=== PATIENT | male | born 1960 | race Caucasian/White ===

== ENCOUNTER 2019-01-14 18:18 | Inpatient (IN) | payer OTHER ==
[~2019-01-14] VITALS: Ht 170.2 cm; Wt 130.6 kg
[2019-01-14 18:18] VITALS: BP_SYST 158
[~2019-01-14 18:18] MED LIST: APIX5TAB4 PO; CEPH-568 PO; HYDR-4038 PO; LISI-600 PO; PRED20TA PO; TOPXL100 PO
[2019-01-14] MEDS ORDERED: EMPA10TA PO (18:51)
[2019-01-14] MEDS ORDERED: TAMS0.4C96 PO (18:51)
[2019-01-14 19:13] LABS: BASOPHILS % (AUTO) 0.2 % (0.0-2.0); HEMATOCRIT 41.1 % (36-54); HEMOGLOBIN 13.3 g/dL (14.0-18.0); LYMPHOCYTES # (AUTO) 0.2 K/uL (1.0-5.5); LYMPHOCYTES % (AUTO) 1.5 % (20.5-51.5); MEAN CORPUSCULAR HEMOGLOBIN 29 pg (27-31); MEAN CORPUSCULAR HGB CONC 32 % (32-36); MEAN CORPUSCULAR VOLUME 91 fL (79.0-98.0); MONOCYTES # (AUTO) 0.3 K/uL (0.0-1.0); NEUTROPHILS # (AUTO) 15.9 K/uL (1.8-7.7); NEUTROPHILS % (AUTO) 96.3 % (40.0-70.0); PLATELET COUNT (AUTO) 219 K/uL (130-430); RED BLOOD CELL COUNT(AUTO) 4.53 MIL/uL (4.2-6.2); RED CELL DISTRIBUTION WIDTH 17.1 % (9.0-15.0); WHITE BLOOD COUNT (AUTO) 16.5 K/uL (4.8-10.8)
[2019-01-14 19:27] LABS: CALCIUM 8.6 mg/dL (8.4-11.0); CREATININE 1.58 mg/dL (0.55-1.30); POTASSIUM 3.8 mmol/L (3.5-5.1)
[2019-01-14 19:31] LABS: INR 1.1 (0.80-1.20); PROTHROMBIN TIME 11.1 SECS (9.5-12.5)
[2019-01-14 19:33] LABS: ALBUMIN 2.7 g/dL (3.4-4.8); TOTAL BILIRUBIN 1.3 mg/dL (0.0-1.0)
[2019-01-14] MEDS ORDERED: PANTOPRAZOLE SODIUM 40 MG/VIAL (PROTONIX) IVP ONE (19:45)
[2019-01-14] MEDS ORDERED: METO-442 PO (20:30)
[2019-01-14] MEDS ORDERED: DEXTROSE 50% JECT 50 ML DISP.SYRIN IVP PRN (20:30)
[2019-01-14] MEDS: PANTOPRAZOLE SODIUM 40 MG/VIAL (PROTONIX) IVP SCH ×2 (20:30→21:00)
[2019-01-14] MEDS ORDERED: METOPROLOL TARTRATE 50 MG TABLET PO SCH (21:00)
[2019-01-14] MEDS: PREDNISONE 20 MG TABLET PO SCH (21:00)
[2019-01-14 21:41] VITALS: BP_SYST 153
[2019-01-14] MEDS: NACL 0.9% 1,000 ML IV SCH (22:53)
[2019-01-15] VITALS (7 sets, daily range): BP systolic 141–187
[2019-01-15 01:34] LABS: HEMATOCRIT 35.5 % (36-54); HEMOGLOBIN 11.9 g/dL (14.0-18.0)
[2019-01-15 08:30] LABS: HEMATOCRIT 35.5 % (36-54); HEMOGLOBIN 11.5 g/dL (14.0-18.0)
[2019-01-15] MEDS: TAMSULOSIN HCL 0.4 MG CAP PO SCH (08:34)
[2019-01-15] MEDS: PREDNISONE 20 MG TABLET PO SCH ×2 (08:34→20:30)
[2019-01-15] MEDS: PANTOPRAZOLE SODIUM 40 MG/VIAL (PROTONIX) IVP SCH ×3 (08:35→20:19)
[2019-01-15] MEDS: NACL 0.9% 1,000 ML IV SCH (10:00)
[2019-01-15] MEDS: hydrALAZINE HCL 25 MG TABLET PO SCH ×3 (12:00→23:54)
[2019-01-15] MEDS: D5NS 1,000 ML IV SCH ×2 (14:06→21:45)
[2019-01-15] MEDS: ENALAPRILAT DIHYDRATE 1.25 MG/ML VIAL IVP PRN (14:25)
[2019-01-15 14:45] LABS: HEMATOCRIT 38.2 % (36-54); HEMOGLOBIN 12.4 g/dL (14.0-18.0)
[2019-01-15] MEDS ORDERED: PROPOFOL 200MG/ 20ML VIAL (DIPRIVAN) IV ONE (15:20)
[2019-01-15] MEDS ORDERED: NS IRRIG SOLN 1000 ML IR ONE (15:20)
[2019-01-15] MEDS ORDERED: WATER FOR IRRIGATION,STERILE 1,000 ML IRRIG.SOLN IR ONE (15:20)
[2019-01-15] MEDS ORDERED: LR 1,000 ML IV.SOLN IV ONE (15:20)
[2019-01-15] MEDS: METOPROLOL TARTRATE 50 MG TABLET PO SCH (20:17)
[2019-01-15 20:19] LABS: HEMATOCRIT 38.3 % (36-54); HEMOGLOBIN 12.5 g/dL (14.0-18.0)
[2019-01-16 02:27] VITALS: BP_SYST 146
[2019-01-16] MEDS: hydrALAZINE HCL 25 MG TABLET PO SCH ×4 (05:22→23:05)
[2019-01-16 06:31] LABS: BASOPHILS # (AUTO) 0.1 K/uL (0.0-0.2); BASOPHILS % (AUTO) 0.5 % (0.0-2.0); EOSINOPHILS % (AUTO) 0.1 % (0.0-4.0); HEMATOCRIT 37.1 % (36-54); HEMOGLOBIN 11.9 g/dL (14.0-18.0); LYMPHOCYTES # (AUTO) 0.4 K/uL (1.0-5.5); MEAN CORPUSCULAR HEMOGLOBIN 29 pg (27-31); MEAN CORPUSCULAR HGB CONC 32 % (32-36); MEAN CORPUSCULAR VOLUME 91 fL (79.0-98.0); MONOCYTES # (AUTO) 0.8 K/uL (0.0-1.0); MONOCYTES % (AUTO) 6.5 % (1.7-9.3); NEUTROPHILS % (AUTO) 89.9 % (40.0-70.0); PLATELET COUNT (AUTO) 181 K/uL (130-430); RED BLOOD CELL COUNT(AUTO) 4.08 MIL/uL (4.2-6.2); WHITE BLOOD COUNT (AUTO) 12.2 K/uL (4.8-10.8)
[2019-01-16 06:50] LABS: ALBUMIN 2.4 g/dL (3.4-4.8); CALCIUM 8.4 mg/dL (8.4-11.0); CREATININE 1.04 mg/dL (0.55-1.30); POTASSIUM 3.5 mmol/L (3.5-5.1); TOTAL BILIRUBIN 1.2 mg/dL (0.0-1.0)
[2019-01-16] MEDS: D5NS 1,000 ML IV SCH ×2 (07:45→17:45)
[2019-01-16] MEDS ORDERED: DIATR MEGLU/DIATRIZ SOD 30 ML SOLUTION PO ONE (08:08)
[2019-01-16] MEDS: PANTOPRAZOLE SODIUM 40 MG/VIAL (PROTONIX) IVP SCH ×2 (08:22→20:44)
[2019-01-16 09:51] VITALS: BP_SYST 135
[2019-01-16] MEDS ORDERED: IOHEXOL 100 ML IV ONE (10:07)
[2019-01-16] MEDS: TAMSULOSIN HCL 0.4 MG CAP PO SCH (10:33)
[2019-01-16] MEDS: PREDNISONE 20 MG TABLET PO SCH ×4 (10:33→21:02)
[2019-01-16] MEDS: LISINOPRIL 20 MG TABLET PO SCH (10:34)
[2019-01-16] MEDS: METOPROLOL TARTRATE 50 MG TABLET PO SCH ×2 (10:34→20:46)
[2019-01-16 12:28] VITALS: BP_SYST 150
[2019-01-16 14:44] LABS: HEMATOCRIT 37.6 % (36-54); HEMOGLOBIN 12.3 g/dL (14.0-18.0)
[2019-01-16 17:22] VITALS: BP_SYST 161
[2019-01-16] MEDS: INSULIN REGULAR, HUMAN 100 UNITS/ML, 10 ML VIAL (humuLIN R) SUBCUT PRN (18:17)
[2019-01-16 20:17] LABS: HEMATOCRIT 36.7 % (36-54)
[2019-01-17 00:46] VITALS: BP_SYST 155
[2019-01-17] MEDS: D5NS 1,000 ML IV SCH (03:18)
[2019-01-17] MEDS: hydrALAZINE HCL 25 MG TABLET PO SCH ×3 (06:11→18:20)
[2019-01-17 06:46] LABS: BASOPHILS % (AUTO) 0.2 % (0.0-2.0); EOSINOPHILS % (AUTO) 0.1 % (0.0-4.0); HEMATOCRIT 35.3 % (36-54); HEMOGLOBIN 11.5 g/dL (14.0-18.0); LYMPHOCYTES # (AUTO) 0.4 K/uL (1.0-5.5); LYMPHOCYTES % (AUTO) 3.6 % (20.5-51.5); MEAN CORPUSCULAR HEMOGLOBIN 30 pg (27-31); MEAN CORPUSCULAR HGB CONC 33 % (32-36); MEAN CORPUSCULAR VOLUME 90 fL (79.0-98.0); MONOCYTES # (AUTO) 0.8 K/uL (0.0-1.0); MONOCYTES % (AUTO) 7.4 % (1.7-9.3); NEUTROPHILS # (AUTO) 9.1 K/uL (1.8-7.7); PLATELET COUNT (AUTO) 178 K/uL (130-430); RED BLOOD CELL COUNT(AUTO) 3.91 MIL/uL (4.2-6.2); RED CELL DISTRIBUTION WIDTH 16.7 % (9.0-15.0); WHITE BLOOD COUNT (AUTO) 10.3 K/uL (4.8-10.8)
[2019-01-17 06:58] LABS: ALBUMIN 2.3 g/dL (3.4-4.8); CALCIUM 7.8 mg/dL (8.4-11.0); CREATININE 0.92 mg/dL (0.55-1.30); POTASSIUM 3.2 mmol/L (3.5-5.1); TOTAL BILIRUBIN 1.2 mg/dL (0.0-1.0)
[2019-01-17] MEDS ORDERED: COMMUNICATION ORDER XX ONE ×2 (07:30→13:30)
[2019-01-17] MEDS ORDERED: BISACODYL 5 MG TABLET.DR (DULCOLAX) PO ONE ×2 (07:30→18:00)
[2019-01-17 08:30] VITALS: BP_SYST 128
[2019-01-17] MEDS: PREDNISONE 20 MG TABLET PO SCH ×3 (09:00→20:41)
[2019-01-17] MEDS: LISINOPRIL 20 MG TABLET PO SCH (09:16)
[2019-01-17] MEDS: PANTOPRAZOLE SODIUM 40 MG/VIAL (PROTONIX) IVP SCH ×2 (09:16→20:43)
[2019-01-17] MEDS: METOPROLOL TARTRATE 50 MG TABLET PO SCH ×2 (09:17→20:43)
[2019-01-17] MEDS: TAMSULOSIN HCL 0.4 MG CAP PO SCH (09:17)
[2019-01-17 10:06] LABS: NEUTROPHILS % (AUTO) 88.7 % (40.0-70.0)
[2019-01-17 11:06] VITALS: BP_SYST 147
[2019-01-17] MEDS: NACL 0.9% 1,000 ML IV SCH (13:50)
[2019-01-17 14:56] VITALS: BP_SYST 142
[2019-01-17] MEDS ORDERED: PIPERACILLIN/TAZOBACTAM 3.375 GM/ D5W 50 ML IV ONE ×2 (15:00)
[2019-01-17] MEDS: LEVOFLOXACIN 500 MG/D5W 100 ML IV SCH (15:34)
[2019-01-17] MEDS ORDERED: GOLYTELY / COLYTE SOLUTION 4 LITERS PO SCH (18:00)
[2019-01-17] MEDS: metroNIDAZOLE 500 mg/NS 100 ML IV SCH (18:17)
[2019-01-17 19:00] VITALS: BP_SYST 155
[2019-01-17] MEDS: INSULIN REGULAR, HUMAN 100 UNITS/ML, 10 ML VIAL (humuLIN R) SUBCUT PRN (19:29)
[2019-01-17 20:00] VITALS: BP_SYST 155
[2019-01-18] VITALS (10 sets, daily range): BP systolic 129–171
[2019-01-18] MEDS ORDERED: PIPERACILLIN/TAZOBACTAM 3.375 GM/ D5W 50 ML IV SCH ×2
[2019-01-18] MEDS: hydrALAZINE HCL 25 MG TABLET PO SCH ×5 (00:18→23:35)
[2019-01-18] MEDS: metroNIDAZOLE 500 mg/NS 100 ML IV SCH ×7 (00:18→23:35)
[2019-01-18] MEDS: NACL 0.9% 1,000 ML IV SCH ×3 (03:48→18:54)
[2019-01-18 07:25] LABS: BASOPHILS % (AUTO) 0.2 % (0.0-2.0); EOSINOPHILS % (AUTO) 0.2 % (0.0-4.0); HEMATOCRIT 35.8 % (36-54); HEMOGLOBIN 11.9 g/dL (14.0-18.0); LYMPHOCYTES # (AUTO) 0.4 K/uL (1.0-5.5); MEAN CORPUSCULAR HEMOGLOBIN 30 pg (27-31); MEAN CORPUSCULAR HGB CONC 33 % (32-36); MEAN CORPUSCULAR VOLUME 90 fL (79.0-98.0); MONOCYTES # (AUTO) 0.8 K/uL (0.0-1.0); MONOCYTES % (AUTO) 8.2 % (1.7-9.3); NEUTROPHILS # (AUTO) 9.1 K/uL (1.8-7.7); NEUTROPHILS % (AUTO) 87.4 % (40.0-70.0); PLATELET COUNT (AUTO) 173 K/uL (130-430); RED BLOOD CELL COUNT(AUTO) 3.96 MIL/uL (4.2-6.2); RED CELL DISTRIBUTION WIDTH 16.7 % (9.0-15.0); WHITE BLOOD COUNT (AUTO) 10.4 K/uL (4.8-10.8)
[2019-01-18] MEDS: PREDNISONE 20 MG TABLET PO SCH (09:30)
[2019-01-18] MEDS: METOPROLOL TARTRATE 50 MG TABLET PO SCH ×2 (09:31→20:32)
[2019-01-18] MEDS: LISINOPRIL 20 MG TABLET PO SCH (09:31)
[2019-01-18] MEDS: TAMSULOSIN HCL 0.4 MG CAP PO SCH (09:32)
[2019-01-18] MEDS: PANTOPRAZOLE SODIUM 40 MG/VIAL (PROTONIX) IVP SCH ×2 (09:33→20:23)
[2019-01-18] MEDS ORDERED: HYDROCORTISONE SOD SUCC 100 MG/2 ML VIAL IVP ONE (10:30)
[2019-01-18] MEDS: LEVOFLOXACIN 500 MG/D5W 100 ML IV SCH (15:00)
[2019-01-18] MEDS ORDERED: ONDANSETRON HCL 4 MG/2 ML VIAL IVP PRN (15:30)
[2019-01-18] MEDS ORDERED: fentaNYL CITRATE/PF 100 MCG/2 ML AMP IVP PRN (15:30)
[2019-01-18] MEDS ORDERED: KETOROLAC TROMETHAMINE 30 MG VIAL IVP PRN (15:30)
[2019-01-18] MEDS ORDERED: ACETAMINOPHEN 325 MG TABLET PO PRN (16:15)
[2019-01-18] MEDS ORDERED: LR 1,000 ML IV.SOLN IV ONE (16:35)
[2019-01-18] MEDS ORDERED: ROCURONIUM BROMIDE 10 MG/ML (ZEMURON) ONE (16:35)
[2019-01-18] MEDS ORDERED: metroNIDAZOLE 500 mg/NS 100 mL IVPB IV ONE (16:35)
[2019-01-18] MEDS ORDERED: NS 1000 ML IV.SOLN IV ONE (16:35)
[2019-01-18] MEDS ORDERED: KETOROLAC TROMETHAMINE 30 MG VIAL ONE (16:35)
[2019-01-18] MEDS ORDERED: BUPIVACAINE /EPINEPHRINE/PF 0.25% 30 ML VIAL INJ ONE (16:35)
[2019-01-18] MEDS ORDERED: SEVOFLURANE 15 MIN GAS INH ONE (16:35)
[2019-01-18] MEDS ORDERED: NS IRRIG SOLN 1000 ML IR ONE (16:35)
[2019-01-18] MEDS ORDERED: PROPOFOL 200MG/ 20ML VIAL (DIPRIVAN) IV ONE (16:35)
[2019-01-18] MEDS ORDERED: fentaNYL CITRATE/PF 100 MCG/2 ML AMP ONE ×3 (16:35→17:25)
[2019-01-18] MEDS ORDERED: MIDAZOLAM HCL 5 MG/ML VIAL (VERSED) IV ONE (16:35)
[2019-01-18] MEDS ORDERED: HYDROCORTISONE SOD SUCC 100 MG/2 ML VIAL ONE (16:35)
[2019-01-18] MEDS ORDERED: LEVOFLOXACIN 500 MG/D5W 100 ML PIGGYBACK IV ONE (16:35)
[2019-01-18] MEDS: fentaNYL CITRATE/PF 100 MCG/2 ML AMP IVP PRN ×2 (16:45→17:15)
[2019-01-18] MEDS: INSULIN REGULAR, HUMAN 100 UNITS/ML, 10 ML VIAL (humuLIN R) SUBCUT PRN (19:03)
[2019-01-18] MEDS: HYDROmorphone 1 MG INJ. 1 MG/ML AMPUL IVP PRN ×2 (20:23→23:39)
[2019-01-18] MEDS: ENALAPRILAT DIHYDRATE 1.25 MG/ML VIAL IVP PRN (20:23)
[2019-01-18] MEDS: ONDANSETRON HCL 4 MG/2 ML VIAL IVP PRN (20:23)
[2019-01-18] MEDS: HYDROCORTISONE SOD SUCC 100 MG/2 ML VIAL IVP SCH (21:14)
[2019-01-19] VITALS (20 sets, daily range): BP systolic 123–157
[2019-01-19 05:39] LABS: BASOPHILS % (AUTO) 0.2 % (0.0-2.0); HEMATOCRIT 32.6 % (36-54); HEMOGLOBIN 10.7 g/dL (14.0-18.0); LYMPHOCYTES # (AUTO) 0.3 K/uL (1.0-5.5); LYMPHOCYTES % (AUTO) 1.7 % (20.5-51.5); MEAN CORPUSCULAR HEMOGLOBIN 30 pg (27-31); MEAN CORPUSCULAR HGB CONC 33 % (32-36); MEAN CORPUSCULAR VOLUME 91 fL (79.0-98.0); MONOCYTES % (AUTO) 5.7 % (1.7-9.3); NEUTROPHILS # (AUTO) 16.5 K/uL (1.8-7.7); NEUTROPHILS % (AUTO) 92.4 % (40.0-70.0); PLATELET COUNT (AUTO) 153 K/uL (130-430); RED BLOOD CELL COUNT(AUTO) 3.59 MIL/uL (4.2-6.2); RED CELL DISTRIBUTION WIDTH 16.6 % (9.0-15.0); WHITE BLOOD COUNT (AUTO) 17.9 K/uL (4.8-10.8)
[2019-01-19] MEDS: HYDROCORTISONE SOD SUCC 100 MG/2 ML VIAL IVP SCH ×3 (05:41→22:37)
[2019-01-19] MEDS: metroNIDAZOLE 500 mg/NS 100 ML IV SCH ×3 (05:42→17:51)
[2019-01-19] MEDS: HYDROmorphone 1 MG INJ. 1 MG/ML AMPUL IVP PRN ×3 (05:43→20:16)
[2019-01-19] MEDS: INSULIN REGULAR, HUMAN 100 UNITS/ML, 10 ML VIAL (humuLIN R) SUBCUT PRN (05:47)
[2019-01-19] MEDS: hydrALAZINE HCL 25 MG TABLET PO SCH ×3 (06:00→17:51)
[2019-01-19 06:06] LABS: ALBUMIN 1.9 g/dL (3.4-4.8); CALCIUM 7.2 mg/dL (8.4-11.0); CREATININE 0.9 mg/dL (0.55-1.30); POTASSIUM 3.5 mmol/L (3.5-5.1); TOTAL BILIRUBIN 0.7 mg/dL (0.0-1.0)
[2019-01-19] MEDS: LISINOPRIL 20 MG TABLET PO SCH (08:39)
[2019-01-19] MEDS: TAMSULOSIN HCL 0.4 MG CAP PO SCH (08:39)
[2019-01-19] MEDS: PANTOPRAZOLE SODIUM 40 MG/VIAL (PROTONIX) IVP SCH ×2 (08:47→20:17)
[2019-01-19] MEDS: METOPROLOL TARTRATE 50 MG TABLET PO SCH ×2 (08:47→20:21)
[2019-01-19] MEDS: NACL 0.9% 1,000 ML IV SCH ×3 (08:49→22:13)
[2019-01-19] MEDS: FLUCONAZOLE 200 mg/ NS 100 ML IV SCH (20:17)
[2019-01-20] MEDS: hydrALAZINE HCL 25 MG TABLET PO SCH ×5 (00:16→23:56)
[2019-01-20] MEDS: metroNIDAZOLE 500 mg/NS 100 ML IV SCH ×4 (00:17→18:13)
[2019-01-20 02:33] VITALS: BP_SYST 143
[2019-01-20] MEDS: HYDROCORTISONE SOD SUCC 100 MG/2 ML VIAL IVP SCH ×3 (05:53→22:15)
[2019-01-20] MEDS: NACL 0.9% 1,000 ML IV SCH ×4 (05:54→18:13)
[2019-01-20 08:00] VITALS: BP_SYST 149
[2019-01-20] MEDS: HYDROmorphone 1 MG INJ. 1 MG/ML AMPUL IVP PRN ×3 (08:16→23:58)
[2019-01-20] MEDS: PANTOPRAZOLE SODIUM 40 MG/VIAL (PROTONIX) IVP SCH ×2 (08:17→22:15)
[2019-01-20] MEDS: TAMSULOSIN HCL 0.4 MG CAP PO SCH (08:20)
[2019-01-20] MEDS: METOPROLOL TARTRATE 50 MG TABLET PO SCH ×2 (08:20→22:18)
[2019-01-20] MEDS: LISINOPRIL 20 MG TABLET PO SCH (08:22)
[2019-01-20 11:35] VITALS: BP_SYST 167
[2019-01-20 14:06] LABS: BASOPHILS # (AUTO) 0.1 K/uL (0.0-0.2); BASOPHILS % (AUTO) 0.5 % (0.0-2.0); HEMATOCRIT 31.3 % (36-54); HEMOGLOBIN 10.1 g/dL (14.0-18.0); LYMPHOCYTES # (AUTO) 0.3 K/uL (1.0-5.5); LYMPHOCYTES % (AUTO) 2.2 % (20.5-51.5); MEAN CORPUSCULAR HEMOGLOBIN 30 pg (27-31); MEAN CORPUSCULAR HGB CONC 32 % (32-36); MEAN CORPUSCULAR VOLUME 91 fL (79.0-98.0); MONOCYTES # (AUTO) 0.9 K/uL (0.0-1.0); MONOCYTES % (AUTO) 6.5 % (1.7-9.3); NEUTROPHILS # (AUTO) 12.8 K/uL (1.8-7.7); NEUTROPHILS % (AUTO) 90.8 % (40.0-70.0); PLATELET COUNT (AUTO) 147 K/uL (130-430); RED BLOOD CELL COUNT(AUTO) 3.44 MIL/uL (4.2-6.2); RED CELL DISTRIBUTION WIDTH 16.9 % (9.0-15.0); WHITE BLOOD COUNT (AUTO) 14.1 K/uL (4.8-10.8)
[2019-01-20 14:40] VITALS: BP_SYST 131
[2019-01-20] MEDS: FLUCONAZOLE 200 mg/ NS 100 ML IV SCH (16:57)
[2019-01-20 20:00] VITALS: BP_SYST 172
[2019-01-21] MEDS: metroNIDAZOLE 500 mg/NS 100 ML IV SCH ×5 (00:04→23:07)
[2019-01-21] MEDS: NACL 0.9% 1,000 ML IV SCH ×2 (02:52→14:14)
[2019-01-21] MEDS: ENALAPRILAT DIHYDRATE 1.25 MG/ML VIAL IVP PRN (04:27)
[2019-01-21] MEDS: hydrALAZINE HCL 25 MG TABLET PO SCH ×4 (05:27→23:21)
[2019-01-21] MEDS: HYDROCORTISONE SOD SUCC 100 MG/2 ML VIAL IVP SCH ×3 (05:27→22:47)
[2019-01-21 06:30] LABS: BASOPHILS % (AUTO) 0.1 % (0.0-2.0); HEMATOCRIT 30.3 % (36-54); HEMOGLOBIN 9.9 g/dL (14.0-18.0); LYMPHOCYTES # (AUTO) 0.3 K/uL (1.0-5.5); LYMPHOCYTES % (AUTO) 2.5 % (20.5-51.5); MEAN CORPUSCULAR HEMOGLOBIN 30 pg (27-31); MEAN CORPUSCULAR HGB CONC 33 % (32-36); MEAN CORPUSCULAR VOLUME 91 fL (79.0-98.0); MONOCYTES # (AUTO) 0.8 K/uL (0.0-1.0); MONOCYTES % (AUTO) 6.1 % (1.7-9.3); NEUTROPHILS # (AUTO) 11.9 K/uL (1.8-7.7); NEUTROPHILS % (AUTO) 91.3 % (40.0-70.0); PLATELET COUNT (AUTO) 148 K/uL (130-430); RED BLOOD CELL COUNT(AUTO) 3.34 MIL/uL (4.2-6.2); RED CELL DISTRIBUTION WIDTH 16.5 % (9.0-15.0)
[2019-01-21 08:00] VITALS: BP_SYST 165
[2019-01-21] MEDS: TAMSULOSIN HCL 0.4 MG CAP PO SCH (08:17)
[2019-01-21] MEDS: PANTOPRAZOLE SODIUM 40 MG/VIAL (PROTONIX) IVP SCH ×2 (08:17→20:23)
[2019-01-21] MEDS: METOPROLOL TARTRATE 50 MG TABLET PO SCH ×2 (08:18→20:25)
[2019-01-21] MEDS: HYDROmorphone 1 MG INJ. 1 MG/ML AMPUL IVP PRN ×4 (08:19→22:47)
[2019-01-21] MEDS: LISINOPRIL 20 MG TABLET PO SCH (08:19)
[2019-01-21 12:43] VITALS: BP_SYST 166
[2019-01-21 15:00] VITALS: BP_SYST 157
[2019-01-21] MEDS: INSULIN REGULAR, HUMAN 100 UNITS/ML, 10 ML VIAL (humuLIN R) SUBCUT PRN ×2 (17:18→23:12)
[2019-01-21] MEDS ORDERED: GENTAMICIN SULFATE 400 MG in NS 100 ML IV SCH (18:00)
[2019-01-21] MEDS: FLUCONAZOLE 200 mg/ NS 100 ML IV SCH (18:25)
[2019-01-21 20:00] VITALS: BP_SYST 152
[2019-01-22] VITALS (7 sets, daily range): BP systolic 139–186
[2019-01-22] MEDS: ENALAPRILAT DIHYDRATE 1.25 MG/ML VIAL IVP PRN ×2 (00:43→16:15)
[2019-01-22] MEDS: HYDROmorphone 1 MG INJ. 1 MG/ML AMPUL IVP PRN ×3 (05:43→20:58)
[2019-01-22] MEDS: HYDROCORTISONE SOD SUCC 100 MG/2 ML VIAL IVP SCH ×3 (05:44→21:36)
[2019-01-22] MEDS: INSULIN REGULAR, HUMAN 100 UNITS/ML, 10 ML VIAL (humuLIN R) SUBCUT PRN (05:56)
[2019-01-22] MEDS: metroNIDAZOLE 500 mg/NS 100 ML IV SCH ×3 (05:59→18:02)
[2019-01-22] MEDS: NACL 0.9% 1,000 ML IV SCH ×3 (06:01→20:55)
[2019-01-22] MEDS: hydrALAZINE HCL 25 MG TABLET PO SCH ×3 (06:02→18:02)
[2019-01-22] MEDS: TAMSULOSIN HCL 0.4 MG CAP PO SCH (08:16)
[2019-01-22] MEDS: PANTOPRAZOLE SODIUM 40 MG/VIAL (PROTONIX) IVP SCH ×2 (08:17→20:55)
[2019-01-22] MEDS: LISINOPRIL 20 MG TABLET PO SCH (08:17)
[2019-01-22] MEDS: METOPROLOL TARTRATE 50 MG TABLET PO SCH ×2 (08:18→20:56)
[2019-01-22] MEDS: CEFEPIME 1 GM in D5W 50 ML IV SCH (13:58)
[2019-01-22] MEDS ORDERED: MINOXIDIL 10 MG TABLET (LONITEN) PO ONE (14:45)
[2019-01-22] MEDS: FLUCONAZOLE 200 mg/ NS 100 ML IV SCH (17:20)
[2019-01-22] MEDS: MINOXIDIL 10 MG TABLET (LONITEN) PO SCH (20:57)
[2019-01-23] MEDS: metroNIDAZOLE 500 mg/NS 100 ML IV SCH ×5 (00:10→23:38)
[2019-01-23] MEDS: hydrALAZINE HCL 25 MG TABLET PO SCH ×5 (00:11→23:39)
[2019-01-23] MEDS: INSULIN REGULAR, HUMAN 100 UNITS/ML, 10 ML VIAL (humuLIN R) SUBCUT PRN ×5 (00:22→23:49)
[2019-01-23 01:08] VITALS: BP_SYST 138
[2019-01-23] MEDS: CEFEPIME 1 GM in D5W 50 ML IV SCH ×2 (01:18→13:21)
[2019-01-23] MEDS: NACL 0.9% 1,000 ML IV SCH ×3 (06:13→23:38)
[2019-01-23] MEDS: HYDROCORTISONE SOD SUCC 100 MG/2 ML VIAL IVP SCH ×3 (06:22→21:10)
[2019-01-23 07:03] LABS: BASOPHILS % (AUTO) 0.2 % (0.0-2.0); HEMATOCRIT 31.5 % (36-54); HEMOGLOBIN 10.5 g/dL (14.0-18.0); LYMPHOCYTES # (AUTO) 0.3 K/uL (1.0-5.5); LYMPHOCYTES % (AUTO) 2.4 % (20.5-51.5); MEAN CORPUSCULAR HEMOGLOBIN 30 pg (27-31); MEAN CORPUSCULAR HGB CONC 33 % (32-36); MEAN CORPUSCULAR VOLUME 90 fL (79.0-98.0); MONOCYTES # (AUTO) 0.7 K/uL (0.0-1.0); MONOCYTES % (AUTO) 6.2 % (1.7-9.3); NEUTROPHILS # (AUTO) 9.9 K/uL (1.8-7.7); NEUTROPHILS % (AUTO) 91.2 % (40.0-70.0); PLATELET COUNT (AUTO) 152 K/uL (130-430); RED BLOOD CELL COUNT(AUTO) 3.49 MIL/uL (4.2-6.2); RED CELL DISTRIBUTION WIDTH 16.5 % (9.0-15.0); WHITE BLOOD COUNT (AUTO) 10.9 K/uL (4.8-10.8)
[2019-01-23 07:13] LABS: CALCIUM 7.8 mg/dL (8.4-11.0); CREATININE 0.71 mg/dL (0.55-1.30); POTASSIUM 3.3 mmol/L (3.5-5.1); TOTAL BILIRUBIN 0.4 mg/dL (0.0-1.0)
[2019-01-23 08:01] VITALS: BP_SYST 143
[2019-01-23] MEDS ORDERED: HYDROcodone/ACETAMIN 5-325 MG TAB (NORCO/ VICODIN) PO PRN (08:30)
[2019-01-23] MEDS: LISINOPRIL 20 MG TABLET PO SCH (09:13)
[2019-01-23] MEDS: METOPROLOL TARTRATE 50 MG TABLET PO SCH ×2 (09:14→21:00)
[2019-01-23] MEDS: PANTOPRAZOLE SODIUM 40 MG/VIAL (PROTONIX) IVP SCH ×2 (09:15→20:56)
[2019-01-23] MEDS: TAMSULOSIN HCL 0.4 MG CAP PO SCH (09:15)
[2019-01-23] MEDS: MINOXIDIL 10 MG TABLET (LONITEN) PO SCH ×2 (09:15→21:00)
[2019-01-23 11:05] VITALS: BP_SYST 135
[2019-01-23] MEDS: HYDROcodone/ACETAMIN 10-325 MG TAB PO PRN (15:14)
[2019-01-23 15:35] VITALS: BP_SYST 128
[2019-01-23] MEDS ORDERED: POTASSIUM CHLORIDE 20 MEQ TAB.PRT.SR PO ONE (16:30)
[2019-01-23] MEDS: ONDANSETRON HCL 4 MG/2 ML VIAL IVP PRN (16:36)
[2019-01-23] MEDS: FLUCONAZOLE 200 mg/ NS 100 ML IV SCH (19:03)
[2019-01-23] MEDS ORDERED: HYDROmorphone 1 MG INJ. 1 MG/ML AMPUL IVP SCH (19:30)
[2019-01-23 20:50] VITALS: BP_SYST 109
[2019-01-24 01:07] VITALS: BP_SYST 116
[2019-01-24] MEDS: CEFEPIME 1 GM in D5W 50 ML IV SCH ×2 (01:55→13:14)
[2019-01-24] MEDS: ONDANSETRON HCL 4 MG/2 ML VIAL IVP PRN ×2 (03:56→19:54)
[2019-01-24] MEDS: HYDROcodone/ACETAMIN 10-325 MG TAB PO PRN ×2 (03:58→19:54)
[2019-01-24] MEDS: INSULIN REGULAR, HUMAN 100 UNITS/ML, 10 ML VIAL (humuLIN R) SUBCUT PRN ×4 (05:51→23:15)
[2019-01-24] MEDS: metroNIDAZOLE 500 mg/NS 100 ML IV SCH ×2 (05:52→11:35)
[2019-01-24] MEDS: HYDROCORTISONE SOD SUCC 100 MG/2 ML VIAL IVP SCH ×3 (05:53→21:39)
[2019-01-24] MEDS: hydrALAZINE HCL 25 MG TABLET PO SCH ×4 (05:53→23:09)
[2019-01-24 06:35] LABS: BASOPHILS % (AUTO) 0.1 % (0.0-2.0); EOSINOPHILS % (AUTO) 0.1 % (0.0-4.0); HEMATOCRIT 30.7 % (36-54); HEMOGLOBIN 10.1 g/dL (14.0-18.0); LYMPHOCYTES # (AUTO) 0.3 K/uL (1.0-5.5); LYMPHOCYTES % (AUTO) 2.2 % (20.5-51.5); MEAN CORPUSCULAR HEMOGLOBIN 30 pg (27-31); MEAN CORPUSCULAR HGB CONC 33 % (32-36); MEAN CORPUSCULAR VOLUME 91 fL (79.0-98.0); MONOCYTES # (AUTO) 0.7 K/uL (0.0-1.0); NEUTROPHILS # (AUTO) 11.3 K/uL (1.8-7.7); NEUTROPHILS % (AUTO) 91.6 % (40.0-70.0); PLATELET COUNT (AUTO) 134 K/uL (130-430); RED BLOOD CELL COUNT(AUTO) 3.39 MIL/uL (4.2-6.2); RED CELL DISTRIBUTION WIDTH 17.1 % (9.0-15.0); WHITE BLOOD COUNT (AUTO) 12.3 K/uL (4.8-10.8)
[2019-01-24 06:56] LABS: CALCIUM 7.8 mg/dL (8.4-11.0); CREATININE 1.16 mg/dL (0.55-1.30); POTASSIUM 3.6 mmol/L (3.5-5.1); TOTAL BILIRUBIN 0.3 mg/dL (0.0-1.0)
[2019-01-24 08:00] VITALS: BP_SYST 139
[2019-01-24] MEDS: PANTOPRAZOLE SODIUM 40 MG/VIAL (PROTONIX) IVP SCH ×2 (08:46→21:39)
[2019-01-24] MEDS: METOPROLOL TARTRATE 50 MG TABLET PO SCH ×2 (08:47→21:40)
[2019-01-24] MEDS: MINOXIDIL 10 MG TABLET (LONITEN) PO SCH (08:48)
[2019-01-24] MEDS: LISINOPRIL 20 MG TABLET PO SCH (08:49)
[2019-01-24] MEDS: TAMSULOSIN HCL 0.4 MG CAP PO SCH (08:49)
[2019-01-24 11:35] VITALS: BP_SYST 104
[2019-01-24 13:44] VITALS: BP_SYST 104
[2019-01-24 15:10] VITALS: BP_SYST 109
[2019-01-24] MEDS: NACL 0.9% 1,000 ML IV SCH (15:29)
[2019-01-24] MEDS: FLUCONAZOLE 200 mg/ NS 100 ML IV SCH (17:14)
[2019-01-24 20:00] VITALS: BP_SYST 119
[2019-01-25] VITALS (7 sets, daily range): BP systolic 122–145
[2019-01-25] MEDS: CEFEPIME 1 GM in D5W 50 ML IV SCH ×2 (01:40→12:24)
[2019-01-25] MEDS: HYDROCORTISONE SOD SUCC 100 MG/2 ML VIAL IVP SCH ×3 (05:37→22:42)
[2019-01-25] MEDS: NACL 0.9% 1,000 ML IV SCH ×2 (05:38→22:44)
[2019-01-25] MEDS: hydrALAZINE HCL 25 MG TABLET PO SCH ×3 (05:43→19:33)
[2019-01-25] MEDS: INSULIN REGULAR, HUMAN 100 UNITS/ML, 10 ML VIAL (humuLIN R) SUBCUT PRN ×2 (05:55→17:48)
[2019-01-25 06:25] LABS: ALBUMIN 1.9 g/dL (3.4-4.8); CALCIUM 7.8 mg/dL (8.4-11.0); CREATININE 1.19 mg/dL (0.55-1.30); POTASSIUM 3.8 mmol/L (3.5-5.1); TOTAL BILIRUBIN 0.3 mg/dL (0.0-1.0)
[2019-01-25 06:32] LABS: BASOPHILS % (AUTO) 0.1 % (0.0-2.0); EOSINOPHILS % (AUTO) 0.1 % (0.0-4.0); HEMATOCRIT 29.6 % (36-54); HEMOGLOBIN 9.7 g/dL (14.0-18.0); LYMPHOCYTES # (AUTO) 0.2 K/uL (1.0-5.5); LYMPHOCYTES % (AUTO) 2.1 % (20.5-51.5); MEAN CORPUSCULAR HEMOGLOBIN 30 pg (27-31); MEAN CORPUSCULAR HGB CONC 33 % (32-36); MEAN CORPUSCULAR VOLUME 91 fL (79.0-98.0); MONOCYTES # (AUTO) 0.5 K/uL (0.0-1.0); MONOCYTES % (AUTO) 4.5 % (1.7-9.3); NEUTROPHILS # (AUTO) 10.8 K/uL (1.8-7.7); NEUTROPHILS % (AUTO) 93.2 % (40.0-70.0); PLATELET COUNT (AUTO) 119 K/uL (130-430); RED BLOOD CELL COUNT(AUTO) 3.26 MIL/uL (4.2-6.2); RED CELL DISTRIBUTION WIDTH 17.1 % (9.0-15.0); WHITE BLOOD COUNT (AUTO) 11.6 K/uL (4.8-10.8)
[2019-01-25] MEDS: LISINOPRIL 20 MG TABLET PO SCH (09:42)
[2019-01-25] MEDS: TAMSULOSIN HCL 0.4 MG CAP PO SCH (09:43)
[2019-01-25] MEDS: METOPROLOL TARTRATE 50 MG TABLET PO SCH ×2 (09:43→22:43)
[2019-01-25] MEDS: PANTOPRAZOLE SODIUM 40 MG/VIAL (PROTONIX) IVP SCH ×2 (09:44→22:42)
[2019-01-25] MEDS: ONDANSETRON HCL 4 MG/2 ML VIAL IVP PRN (12:25)
[2019-01-25] MEDS: HYDROcodone/ACETAMIN 10-325 MG TAB PO PRN (12:26)
[2019-01-25] MEDS: FLUCONAZOLE 200 mg/ NS 100 ML IV SCH (19:34)
[2019-01-26 00:04] VITALS: BP_SYST 142
[2019-01-26] MEDS: hydrALAZINE HCL 25 MG TABLET PO SCH ×4 (00:59→17:40)
[2019-01-26] MEDS: INSULIN REGULAR, HUMAN 100 UNITS/ML, 10 ML VIAL (humuLIN R) SUBCUT PRN ×4 (01:01→17:44)
[2019-01-26] MEDS: CEFEPIME 1 GM in D5W 50 ML IV SCH ×2 (01:13→12:52)
[2019-01-26] MEDS: ONDANSETRON HCL 4 MG/2 ML VIAL IVP PRN ×2 (04:35→16:49)
[2019-01-26] MEDS: HYDROcodone/ACETAMIN 10-325 MG TAB PO PRN ×2 (04:35→16:47)
[2019-01-26] MEDS: HYDROCORTISONE SOD SUCC 100 MG/2 ML VIAL IVP SCH ×2 (06:14→14:33)
[2019-01-26] MEDS: NACL 0.9% 1,000 ML IV SCH ×2 (06:19→10:13)
[2019-01-26 07:53] VITALS: BP_SYST 159
[2019-01-26] MEDS: PANTOPRAZOLE SODIUM 40 MG/VIAL (PROTONIX) IVP SCH (09:04)
[2019-01-26] MEDS: METOPROLOL TARTRATE 50 MG TABLET PO SCH (09:05)
[2019-01-26] MEDS: LISINOPRIL 20 MG TABLET PO SCH (09:05)
[2019-01-26] MEDS: TAMSULOSIN HCL 0.4 MG CAP PO SCH (09:05)
[2019-01-26 12:42] VITALS: BP_SYST 152
[2019-01-26 16:20] VITALS: BP_SYST 156
[2019-01-26 16:42] VITALS: BP_SYST 152
== END 2019-01-26 19:01 | DRG 853 ==
LOC: SED 18:18 → STU 19:59 → SMU 01-17 19:06 → SIC 01-18 17:51 → STU 01-19 19:27 → SMU 01-22 10:49
PROVIDERS: ADMIT Internal Medicine Hospice and Palliative Medicine; ATTEND Internal Medicine Hospice and Palliative Medicine
PROC: 0DTN0ZZ Resection of Sigmoid Colon, Open Approach (ICD-10-PCS; 2019-01-15)
PROC: 0D1N4Z4 Bypass Sigmoid Colon to Cutaneous, Percutaneous Endoscopic Approach (ICD-10-PCS; 2019-01-15)
PROC: 3E1M38Z Irrigation of Peritoneal Cavity using Irrigating Substance, Percutaneous Approach (ICD-10-PCS; 2019-01-15)
PROC: 0DB58ZX Excision of Esophagus, Via Natural or Artificial Opening Endoscopic, Diagnostic (ICD-10-PCS; principal; 2019-01-18 13:00)
DX: A41.9 Sepsis, unspecified organism (principal); K65.9 Peritonitis, unspecified; K57.21 Diverticulitis of large intestine with perforation and abscess with bleeding; Z68.42 Body mass index [BMI] 45.0-49.9, adult; K29.70 Gastritis, unspecified, without bleeding; E66.01 Morbid (severe) obesity due to excess calories; E11.9 Type 2 diabetes mellitus without complications; E78.5 Hyperlipidemia, unspecified; G70.00 Myasthenia gravis without (acute) exacerbation; N28.9 Disorder of kidney and ureter, unspecified; I10 Essential (primary) hypertension; K21.9 Gastro-esophageal reflux disease without esophagitis; N40.0 Benign prostatic hyperplasia without lower urinary tract symptoms; Z79.01 Long term (current) use of anticoagulants; Z86.718 Personal history of other venous thrombosis and embolism; Z88.0 Allergy status to penicillin; Z88.9 Allergy status to unspecified drugs, medicaments and biological substances; Z79.899 Other long term (current) drug therapy; Z79.84 Long term (current) use of oral hypoglycemic drugs
CPT/HCPCS: 36415; 71045; 80053; 80170-TC; 82962; 83605; 85018-TC; 85025; 85610-TC; 85730-TC; 87040-TC; 87070-TC; 87081; 87186-TC; 88305; 88307; 88313; 93005; 96374; 97110-GP; 97530-GP; 99285; A5061; C1751; C9113; G0378; J0692; J1170; J1450; J1580; J1720; J1815; J1885; J1956; J2250; J2405; J2543; J2704; J3010; J3490; J7030; J7042; J7050; J7060; J7120; J7512; Q9964; Q9967

== ENCOUNTER 2019-02-03 16:01 | Inpatient (IN) | payer OTHER ==
[~2019-02-03] VITALS: Ht 167.6 cm; Wt 137.9 kg
[2019-02-03 16:01] VITALS: BP_SYST 150
[~2019-02-03 16:01] MED LIST changes: -APIX5TAB4 PO; -CEPH-568 PO; +METO-442 PO; +TAMS0.4C96 PO; -TOPXL100 PO
[2019-02-03] MEDS ORDERED: PANTOPRAZOLE SODIUM 40 MG/VIAL (PROTONIX) IVP ONE (16:45)
[2019-02-03 17:13] LABS: BASOPHILS % (AUTO) 0.3 % (0.0-2.0); EOSINOPHILS # (AUTO) 0.2 K/uL (0.0-0.4); EOSINOPHILS % (AUTO) 2.8 % (0.0-4.0); HEMOGLOBIN 10.9 g/dL (14.0-18.0); LYMPHOCYTES # (AUTO) 0.5 K/uL (1.0-5.5); LYMPHOCYTES % (AUTO) 6.4 % (20.5-51.5); MEAN CORPUSCULAR HEMOGLOBIN 30 pg (27-31); MEAN CORPUSCULAR HGB CONC 33 % (32-36); MEAN CORPUSCULAR VOLUME 90 fL (79.0-98.0); MONOCYTES # (AUTO) 0.4 K/uL (0.0-1.0); MONOCYTES % (AUTO) 5.2 % (1.7-9.3); NEUTROPHILS # (AUTO) 6.3 K/uL (1.8-7.7); NEUTROPHILS % (AUTO) 85.3 % (40.0-70.0); PLATELET COUNT (AUTO) 184 K/uL (130-430); RED BLOOD CELL COUNT(AUTO) 3.65 MIL/uL (4.2-6.2); RED CELL DISTRIBUTION WIDTH 18.1 % (9.0-15.0); WHITE BLOOD COUNT (AUTO) 7.3 K/uL (4.8-10.8)
[2019-02-03 17:17] LABS: PROTHROMBIN TIME 9.9 SECS (9.5-12.5)
[2019-02-03 17:20] LABS: ANION GAP 4 (5-15); CALCIUM 8.5 mg/dL (8.4-11.0); CHLORIDE 101 mmol/L (98-107); CREATININE 0.87 mg/dL (0.55-1.30); GLUCOSE 174 mg/dL (70-99); POTASSIUM 3.8 mmol/L (3.5-5.1); SODIUM SERUM 139 mmol/L (136-145); UREA NITROGEN, BLOOD 19 mg/dL (8-21)
[2019-02-03 17:23] LABS: GFR AFRICAN AMERICAN 116 mL/min (>90)
[2019-02-03 17:33] LABS: ALANINE AMINOTRANSFERASE 57 U/L (12-78); ALBUMIN 2.1 g/dL (3.4-4.8); ASPARTATE AMINOTRANSFERASE 24 U/L (10-37); FREE T4 (FREE THYROXINE) 1.3 ng/dl (0.8-1.5); TOTAL BILIRUBIN 0.4 mg/dL (0.0-1.0)
[2019-02-03 17:34] LABS: ALCOHOL, BLOOD < 3 mg/dL (<10)
[2019-02-03 17:44] LABS: BILIRUBIN,URINE NEGATIVE (NEGATIVE); BLOOD, URINE 3+ (NEGATIVE); CLARITY/URINE SL CLOUDY (CLEAR); COLOR,URINE YELLOW (YELLOW); GLUCOSE,URINE TRACE (NEGATIVE); KETONES,URINE NEGATIVE (NEGATIVE); LEUKOCYTE ESTERASE ,URINE 2+ (NEGATIVE); NITRITE, URINE NEGATIVE (NEGATIVE); PROTEIN URINE NEGATIVE (NEGATIVE); UROBILINOGEN,URINE 0.2 (0.2-1.0)
[2019-02-03] MEDS ORDERED: ACET325T53 PO (17:46)
[2019-02-03 18:21] LABS: BARBITURATE, URINE NEGATIVE (NEG <=200); BENZODIAZEPINE, URINE NEGATIVE (NEG <=150); CANNABINOID, URINE NEGATIVE (NEG <=50); COCAINE, URINE NEGATIVE (NEG <=150); METHAMPHETAMINES SCREEN,URINE NEGATIVE (NEG <=500); OPIATE, URINE NEGATIVE (NEG <=100); PHENCYCLIDINE SCREEN,URINE NEGATIVE (NEG <=25); UR TRICYCLIC ANTIDEPRESSANTS NEGATIVE (NEG <=300); URINE AMPHETAMINE NEGATIVE (NEG <=500); URINE METHADONE NEGATIVE (NEG <=200); URINE OXYCODONE SCREEN NEGATIVE (NEG <=100); URINE PROPOXYPHENE SCREEN NEGATIVE (NEG <=300)
[2019-02-03 18:40] LABS: RBC,URINE >100 /HPF (0-3); WBC,URINE 80-100 /HPF (0-3)
[2019-02-03 18:41] LABS: BACTERIA,URINE FEW /HPF (None Seen); MUCUS,URINE 1+ /LPF (None Seen)
[2019-02-03 20:47] VITALS: BP_SYST 136
[2019-02-03] MEDS: NACL 0.9% 1,000 ML IV SCH (22:18)
[2019-02-03] MEDS ORDERED: MORPHINE 2 MG/ML INJ. SYRINGE IVP PRN (22:30)
[2019-02-03] MEDS ORDERED: ONDANSETRON HCL 4 MG/2 ML VIAL IVP PRN (22:30)
[2019-02-03] MEDS ORDERED: ALBUTEROL SULFATE 0.083% 2.5 MG/3 ML VIAL.NEB INH PRN (22:30)
[2019-02-03] MEDS ORDERED: INSULIN ASPART 100 UNITS/ML, 10 ML VIAL (NovoLOG) SUBCUT PRN (22:45)
[2019-02-03 23:00] VITALS: BP_SYST 132
[2019-02-03] MEDS: PANTOPRAZOLE SODIUM 40 MG/VIAL (PROTONIX) IVP SCH (23:54)
[2019-02-03] MEDS: MORPHINE 4 MG/ML INJ. SYRINGE IVP PRN (23:55)
[2019-02-04] VITALS: BP_SYST 132
[2019-02-04] MEDS: hydrALAZINE HCL 25 MG TABLET PO SCH ×4 (00:04→17:06)
[2019-02-04] MEDS ORDERED: LEVOFLOXACIN 500 MG/D5W 100 ML IV ONE (00:40)
[2019-02-04] MEDS: LEVOFLOXACIN 500 MG/D5W 100 ML IV SCH ×2 (00:44→23:32)
[2019-02-04 06:57] LABS: ALANINE AMINOTRANSFERASE 44 U/L (12-78); ASPARTATE AMINOTRANSFERASE 19 U/L (10-37); CALCIUM 8.2 mg/dL (8.4-11.0); CHLORIDE 102 mmol/L (98-107); CREATININE 0.86 mg/dL (0.55-1.30); GLUCOSE 93 mg/dL (70-99); POTASSIUM 3.9 mmol/L (3.5-5.1); SODIUM SERUM 139 mmol/L (136-145); TOTAL BILIRUBIN 0.7 mg/dL (0.0-1.0); UREA NITROGEN, BLOOD 15 mg/dL (8-21)
[2019-02-04 07:01] LABS: GFR AFRICAN AMERICAN 117 mL/min (>90)
[2019-02-04 07:02] LABS: ANION GAP < 3 (5-15)
[2019-02-04 07:58] LABS: BASOPHILS # (AUTO) 0.1 K/uL (0.0-0.2); BASOPHILS % (AUTO) 0.8 % (0.0-2.0); EOSINOPHILS # (AUTO) 0.2 K/uL (0.0-0.4); EOSINOPHILS % (AUTO) 2.3 % (0.0-4.0); HEMATOCRIT 31.2 % (36-54); HEMOGLOBIN 10.6 g/dL (14.0-18.0); LYMPHOCYTES # (AUTO) 0.6 K/uL (1.0-5.5); LYMPHOCYTES % (AUTO) 6.4 % (20.5-51.5); MEAN CORPUSCULAR HEMOGLOBIN 31 pg (27-31); MEAN CORPUSCULAR HGB CONC 34 % (32-36); MEAN CORPUSCULAR VOLUME 91 fL (79.0-98.0); MONOCYTES # (AUTO) 0.5 K/uL (0.0-1.0); MONOCYTES % (AUTO) 4.9 % (1.7-9.3); NEUTROPHILS # (AUTO) 8.1 K/uL (1.8-7.7); PLATELET COUNT (AUTO) 196 K/uL (130-430); RED BLOOD CELL COUNT(AUTO) 3.42 MIL/uL (4.2-6.2); RED CELL DISTRIBUTION WIDTH 18.5 % (9.0-15.0); WHITE BLOOD COUNT (AUTO) 9.5 K/uL (4.8-10.8)
[2019-02-04 08:00] VITALS: BP_SYST 112
[2019-02-04] MEDS ORDERED: PREDNISONE 20 MG TABLET PO SCH (09:00)
[2019-02-04] MEDS: TAMSULOSIN HCL 0.4 MG CAP PO SCH (10:08)
[2019-02-04] MEDS: PANTOPRAZOLE SODIUM 40 MG/VIAL (PROTONIX) IVP SCH ×2 (10:08→21:25)
[2019-02-04] MEDS: METOPROLOL TARTRATE 50 MG TABLET PO SCH ×2 (10:10→21:26)
[2019-02-04] MEDS: NACL 0.9% 1,000 ML IV SCH ×2 (10:11→21:42)
[2019-02-04] MEDS: LISINOPRIL 20 MG TABLET PO SCH (10:11)
[2019-02-04] MEDS: MORPHINE 4 MG/ML INJ. SYRINGE IVP PRN ×2 (11:00→17:48)
[2019-02-04] MEDS ORDERED: PREDNISONE 20 MG TABLET PO ONE (12:15)
[2019-02-04 12:46] VITALS: BP_SYST 111
[2019-02-04 13:21] LABS: BASOPHILS % (AUTO) 0.2 % (0.0-2.0); EOSINOPHILS # (AUTO) 0.1 K/uL (0.0-0.4); EOSINOPHILS % (AUTO) 1.8 % (0.0-4.0); HEMATOCRIT 29.1 % (36-54); HEMOGLOBIN 9.5 g/dL (14.0-18.0); LYMPHOCYTES # (AUTO) 0.6 K/uL (1.0-5.5); MEAN CORPUSCULAR HEMOGLOBIN 30 pg (27-31); MEAN CORPUSCULAR HGB CONC 33 % (32-36); MEAN CORPUSCULAR VOLUME 91 fL (79.0-98.0); MONOCYTES # (AUTO) 0.6 K/uL (0.0-1.0); MONOCYTES % (AUTO) 7.5 % (1.7-9.3); NEUTROPHILS # (AUTO) 6.3 K/uL (1.8-7.7); PLATELET COUNT (AUTO) 166 K/uL (130-430); RED BLOOD CELL COUNT(AUTO) 3.19 MIL/uL (4.2-6.2); RED CELL DISTRIBUTION WIDTH 18.2 % (9.0-15.0); WHITE BLOOD COUNT (AUTO) 7.6 K/uL (4.8-10.8)
[2019-02-04 13:59] LABS: NEUTROPHILS % (AUTO) 85.6 % (40.0-70.0)
[2019-02-04 14:00] LABS: NEUTROPHILS % (AUTO) 82.5 % (40.0-70.0)
[2019-02-04 16:33] VITALS: BP_SYST 108
[2019-02-04] MEDS: FLUCONAZOLE 200 mg/ NS 100 ML IV SCH (17:50)
[2019-02-04] MEDS: BALSAM PERU/CASTOR OIL 60 GM OINT...G. TP SCH (17:56)
[2019-02-04 20:15] VITALS: BP_SYST 152
[2019-02-04] MEDS: metroNIDAZOLE 500 mg/NS 100 ML IV SCH (21:24)
[2019-02-04] MEDS: INSULIN LISPRO SLIDING SCALE 100 UNITS/ML VIAL (humaLOG) SUBCUT PRN (23:30)
[2019-02-05 00:30] VITALS: BP_SYST 141
[2019-02-05] MEDS: hydrALAZINE HCL 25 MG TABLET PO SCH ×4 (03:32→18:46)
[2019-02-05] MEDS: metroNIDAZOLE 500 mg/NS 100 ML IV SCH ×3 (06:31→22:00)
[2019-02-05 08:05] LABS: BASOPHILS # (AUTO) 0.1 K/uL (0.0-0.2); BASOPHILS % (AUTO) 0.7 % (0.0-2.0); EOSINOPHILS % (AUTO) 0.1 % (0.0-4.0); HEMATOCRIT 31.2 % (36-54); HEMOGLOBIN 10.4 g/dL (14.0-18.0); LYMPHOCYTES # (AUTO) 0.4 K/uL (1.0-5.5); LYMPHOCYTES % (AUTO) 4.8 % (20.5-51.5); MEAN CORPUSCULAR HEMOGLOBIN 30 pg (27-31); MEAN CORPUSCULAR HGB CONC 33 % (32-36); MEAN CORPUSCULAR VOLUME 91 fL (79.0-98.0); MONOCYTES # (AUTO) 0.3 K/uL (0.0-1.0); NEUTROPHILS # (AUTO) 7.6 K/uL (1.8-7.7); NEUTROPHILS % (AUTO) 90.4 % (40.0-70.0); PLATELET COUNT (AUTO) 152 K/uL (130-430); RED BLOOD CELL COUNT(AUTO) 3.42 MIL/uL (4.2-6.2); WHITE BLOOD COUNT (AUTO) 8.4 K/uL (4.8-10.8)
[2019-02-05] MEDS: PANTOPRAZOLE SODIUM 40 MG/VIAL (PROTONIX) IVP SCH ×2 (09:35→20:45)
[2019-02-05] MEDS: PREDNISONE 20 MG TABLET PO SCH (09:35)
[2019-02-05] MEDS: LISINOPRIL 20 MG TABLET PO SCH (09:36)
[2019-02-05] MEDS: METOPROLOL TARTRATE 50 MG TABLET PO SCH ×2 (09:36→20:47)
[2019-02-05] MEDS: TAMSULOSIN HCL 0.4 MG CAP PO SCH (10:40)
[2019-02-05 11:15] VITALS: BP_SYST 136
[2019-02-05] MEDS: NACL 0.9% 1,000 ML IV SCH (12:18)
[2019-02-05 16:07] VITALS: BP_SYST 140
[2019-02-05] MEDS ORDERED: BISACODYL 5 MG TABLET.DR (DULCOLAX) PO ONE (17:00)
[2019-02-05] MEDS ORDERED: GOLYTELY / COLYTE SOLUTION 4 LITERS PO ONE (18:00)
[2019-02-05] MEDS: FLUCONAZOLE 200 mg/ NS 100 ML IV SCH (18:44)
[2019-02-05] MEDS: BALSAM PERU/CASTOR OIL 60 GM OINT...G. TP SCH (18:46)
[2019-02-05] MEDS: INSULIN LISPRO SLIDING SCALE 100 UNITS/ML VIAL (humaLOG) SUBCUT PRN (19:32)
[2019-02-05 20:30] VITALS: BP_SYST 139
[2019-02-05 23:08] VITALS: BP_SYST 164
[2019-02-06] MEDS: LEVOFLOXACIN 500 MG/D5W 100 ML IV SCH (00:37)
[2019-02-06] MEDS: hydrALAZINE HCL 25 MG TABLET PO SCH ×4 (00:38→17:03)
[2019-02-06] MEDS: NACL 0.9% 1,000 ML IV SCH ×2 (00:43→12:27)
[2019-02-06] MEDS: MORPHINE 4 MG/ML INJ. SYRINGE IVP PRN (01:45)
[2019-02-06] MEDS: metroNIDAZOLE 500 mg/NS 100 ML IV SCH ×3 (06:25→22:00)
[2019-02-06] MEDS ORDERED: SIMETHICONE 40 MG/0.6 ML ML ONE (07:39)
[2019-02-06] MEDS ORDERED: MIDAZOLAM HCL 5 MG/5 ML VIAL ONE (07:39)
[2019-02-06] MEDS ORDERED: MEPERIDINE HCL/PF 100 MG/ML AMP ONE (07:39)
[2019-02-06] MEDS: MIDAZOLAM HCL 5 MG/5 ML VIAL ONE ×3 (08:23→08:31)
[2019-02-06] MEDS: PANTOPRAZOLE SODIUM 40 MG/VIAL (PROTONIX) IVP SCH ×2 (09:46→23:30)
[2019-02-06] MEDS: PREDNISONE 20 MG TABLET PO SCH (09:47)
[2019-02-06] MEDS: LISINOPRIL 20 MG TABLET PO SCH (09:47)
[2019-02-06] MEDS: METOPROLOL TARTRATE 50 MG TABLET PO SCH ×2 (09:48→23:00)
[2019-02-06] MEDS: TAMSULOSIN HCL 0.4 MG CAP PO SCH (09:48)
[2019-02-06] MEDS: BALSAM PERU/CASTOR OIL 60 GM OINT...G. TP SCH (09:50)
[2019-02-06 12:29] VITALS: BP_SYST 120
[2019-02-06 16:00] VITALS: BP_SYST 120
[2019-02-06 16:40] VITALS: BP_SYST 135
[2019-02-06] MEDS: FLUCONAZOLE 200 mg/ NS 100 ML IV SCH (17:04)
[2019-02-07] MEDS: LEVOFLOXACIN 500 MG/D5W 100 ML IV SCH
[2019-02-07 01:26] VITALS: BP_SYST 160
[2019-02-07] MEDS: NACL 0.9% 1,000 ML IV SCH ×2 (02:15→08:38)
[2019-02-07] MEDS: hydrALAZINE HCL 25 MG TABLET PO SCH ×3 (06:00→11:45)
[2019-02-07 06:13] LABS: BASOPHILS % (AUTO) 0.1 % (0.0-2.0); HEMOGLOBIN 9.5 g/dL (14.0-18.0); LYMPHOCYTES # (AUTO) 0.3 K/uL (1.0-5.5); LYMPHOCYTES % (AUTO) 2.4 % (20.5-51.5); MEAN CORPUSCULAR HEMOGLOBIN 30 pg (27-31); MEAN CORPUSCULAR HGB CONC 33 % (32-36); MEAN CORPUSCULAR VOLUME 91 fL (79.0-98.0); MONOCYTES # (AUTO) 0.6 K/uL (0.0-1.0); MONOCYTES % (AUTO) 4.5 % (1.7-9.3); NEUTROPHILS # (AUTO) 12.4 K/uL (1.8-7.7); PLATELET COUNT (AUTO) 143 K/uL (130-430); RED BLOOD CELL COUNT(AUTO) 3.19 MIL/uL (4.2-6.2); RED CELL DISTRIBUTION WIDTH 17.7 % (9.0-15.0)
[2019-02-07 06:22] LABS: ALANINE AMINOTRANSFERASE 25 U/L (12-78); ALBUMIN 1.9 g/dL (3.4-4.8); ASPARTATE AMINOTRANSFERASE 12 U/L (10-37); CALCIUM 7.8 mg/dL (8.4-11.0); CHLORIDE 105 mmol/L (98-107); CREATININE 0.84 mg/dL (0.55-1.30); GLUCOSE 169 mg/dL (70-99); POTASSIUM 4.5 mmol/L (3.5-5.1); SODIUM SERUM 140 mmol/L (136-145); TOTAL BILIRUBIN 0.3 mg/dL (0.0-1.0); UREA NITROGEN, BLOOD 15 mg/dL (8-21)
[2019-02-07 06:36] LABS: ANION GAP < 3 (5-15); GFR AFRICAN AMERICAN 120 mL/min (>90)
[2019-02-07 06:58] LABS: WHITE BLOOD COUNT (AUTO) 13.3 K/uL (4.8-10.8)
[2019-02-07] MEDS: metroNIDAZOLE 500 mg/NS 100 ML IV SCH ×2 (07:08→14:10)
[2019-02-07 08:30] VITALS: BP_SYST 163
[2019-02-07] MEDS: PANTOPRAZOLE SODIUM 40 MG/VIAL (PROTONIX) IVP SCH (08:30)
[2019-02-07] MEDS: PREDNISONE 20 MG TABLET PO SCH (08:31)
[2019-02-07] MEDS: TAMSULOSIN HCL 0.4 MG CAP PO SCH (08:32)
[2019-02-07] MEDS: METOPROLOL TARTRATE 50 MG TABLET PO SCH (08:32)
[2019-02-07] MEDS: LISINOPRIL 20 MG TABLET PO SCH (08:33)
[2019-02-07] MEDS: MORPHINE 4 MG/ML INJ. SYRINGE IVP PRN (08:34)
[2019-02-07] MEDS: BALSAM PERU/CASTOR OIL 60 GM OINT...G. TP SCH (09:59)
[2019-02-07 12:52] VITALS: BP_SYST 136
[2019-02-07 15:40] VITALS: BP_SYST 148
[2019-02-07 17:03] VITALS: BP_SYST 148
== END 2019-02-07 17:19 | DRG 871 ==
LOC: SED 16:01 → STU 18:15 → SMU 18:45
PROVIDERS: ADMIT Internal Medicine Hospice and Palliative Medicine; ATTEND Internal Medicine Hospice and Palliative Medicine
PROC: 0DJD8ZZ Inspection of Lower Intestinal Tract, Via Natural or Artificial Opening Endoscopic (ICD-10-PCS; principal; 2019-02-06 09:00)
DX: A41.9 Sepsis, unspecified organism (principal); K65.8 Other peritonitis; K57.81 Diverticulitis of intestine, part unspecified, with perforation and abscess with bleeding; E43 Unspecified severe protein-calorie malnutrition; N39.0 Urinary tract infection, site not specified; Z16.19 Resistance to other specified beta lactam antibiotics; Z68.42 Body mass index [BMI] 45.0-49.9, adult; G70.00 Myasthenia gravis without (acute) exacerbation; I10 Essential (primary) hypertension; E11.9 Type 2 diabetes mellitus without complications; K64.8 Other hemorrhoids; G25.81 Restless legs syndrome; E66.01 Morbid (severe) obesity due to excess calories; D64.9 Anemia, unspecified; Z93.3 Colostomy status; Z90.49 Acquired absence of other specified parts of digestive tract; Z88.0 Allergy status to penicillin; Z87.440 Personal history of urinary (tract) infections; Z86.718 Personal history of other venous thrombosis and embolism; Z82.49 Family history of ischemic heart disease and other diseases of the circulatory system; Z80.0 Family history of malignant neoplasm of digestive organs
CPT/HCPCS: 36415; 71045; 80053; 80307; 81000-TC; 82140-TC; 82962; 83605; 83880; 84439; 84484; 85025; 85610-TC; 87040-TC; 87081; 87086; 87230-TC; 93005; 96374; 99285; A5061; C9113; G0482; J1450; J1815; J1956; J2175; J2250; J2270; J2405; J3490; J7030; J7512